=== PATIENT | male | born 1970 | race Caucasian/White ===

== ENCOUNTER 2024-11-19 08:06 | Inpatient (IN) | payer BC, MEDICAID ==
[~2024-11-19] VITALS: Ht 167.6 cm; Wt 71.2 kg
[2024-11-19 09:19] LABS: BASOPHILS % 1.1 % (0.0-2.0); EOSINOPHILS % 2.3 % (0.0-5.0); HEMATOCRIT. 48.4 % (42.0-52.0); LYMPHOCYTES % 38.3 % (20.0-50.0); MEAN CORPUSCULAR HEMOGLOBIN 30.3 pg (28.0-32.0); MEAN CORPUSCULAR HGB CONC 33.1 g/dL (31.0-37.0); MEAN CORPUSCULAR VOLUME 91.6 fL (80.0-94.0); MEAN PLATELET VOLUME 8.7 fl (7.4-10.4); MONOCYTES % 6.7 % (2.0-8.0); NEUTROPHILS % 51.6 % (40.0-76.0); PLATELET 221 x1000/uL (130-400); RED BLOOD CELL COUNT 5.29 mill/uL (4.7-6.1); RED CELL DISTRIBUTION WIDTH 13.4 % (11.6-14.6); WHITE BLOOD COUNT 5.6 x1000/uL (4.5-11.0)
[2024-11-19] MEDS: IOHEXOL-350 100 ML BOTTLE ONE (09:19)
[2024-11-19 09:21] LABS: CHLORIDE 106 mEq/L (98-107); POTASSIUM 4.3 mEq/L (3.5-5.1); SODIUM 140 mEq/L (136-145)
[2024-11-19 09:22] LABS: CALCIUM 9.6 mg/dL (8.7-10.4); CARBON DIOXIDE 24 mEq/L (21-32)
[2024-11-19 09:28] LABS: CREATININE 1.2 mg/dL (0.6-1.3); ETHANOL BLOOD < 10 mg/dL (<10); GLUCOSE 118 mg/dL (70-105); UREA NITROGEN BLOOD 14 mg/dL (9-23)
[2024-11-19 09:29] LABS: ALANINE AMINOTRANSFERASE 28 IU/L (10-49); ALBUMIN 4.4 g/dL (3.2-4.8); ASPARTATE AMINOTRANSFERASE 28 IU/L (<34); BILIRUBIN DIRECT 0.2 mg/dL (<=3.0)
[2024-11-19 09:30] LABS: BILIRUBIN TOTAL 0.7 mg/dL (0.1-1.0); PROTEIN TOTAL 7.7 g/dL (6.0-8.3)
[2024-11-19 10:00] LABS: TROPONIN I HIGH SENSITIVITY 118 ng/L (3.0-53)
[2024-11-19 11:11] LABS: INR 0.9; PROTHROMBIN TIME 10.6 sec (9.6-11.0)
[2024-11-19] MEDS ORDERED: ONDANSETRON HCL 4MG/2ML INJ IV PRN (11:15)
[2024-11-19] MEDS ORDERED: ZOLPIDEM TARTRATE 5MG TABLET PO PRN (11:15)
[2024-11-19] MEDS ORDERED: IPRATROPIUM/ALBUTEROL 0.5-3(2.5)MG/3ML NEB NEB PRN (11:15)
[2024-11-19] MEDS ORDERED: ACETAMINOPHEN 325MG TABLET PO PRN (11:15)
[2024-11-19] MEDS ORDERED: CLONIDINE 0.1MG TABLET PO PRN (11:15)
[2024-11-19] MEDS ORDERED: HYDROCODONE/ACETAMINOPHEN 5/325MG TABLET PO PRN (11:15)
[2024-11-19 11:20] LABS: TROPONIN I HIGH SENSITIVITY 115 ng/L (3.0-53)
[2024-11-19] MEDS: ENOXAPARIN 40MG/0.4ML SYR SUBCUT SCH (12:58)
[2024-11-19 15:09] VITALS: BP 109/76; PULSE 57; RESP 20; TEMP 37.11408; O2SAT 99
[2024-11-19 16:00] VITALS: BP 125/90; PULSE 73; RESP 20; TEMP 36.00288; O2SAT 97
[2024-11-19] MEDS ORDERED: CLOPIDOGREL 75MG TABLET PO STA (16:38)
[2024-11-19] MEDS ORDERED: CLOPIDOGREL 75MG TABLET PO ONE (16:57)
[2024-11-19] MEDS: CLOPIDOGREL 75MG TABLET PO NR (17:48)
[2024-11-19] MEDS: ASPIRIN 325MG EC TABLET PO NR (17:48)
[2024-11-19] MEDS: ATORVASTATIN CALCIUM 40MG TABLET PO NR (17:48)
[2024-11-19 18:47] LABS: CREATINE KINASE MB FRACTION 1.7 ng/mL (0.5-3.6)
[2024-11-19 20:00] VITALS: BP 116/73; PULSE 51; RESP 19; TEMP 35.94732; O2SAT 97
[2024-11-19] MEDS ORDERED: ATORVASTATIN CALCIUM 40MG TABLET PO SCH ×2 (21:00)
[2024-11-19 21:51] VITALS: BP 116/73; PULSE 51; RESP 20; TEMP 35.9732
[2024-11-19] MEDS ORDERED: SPIR25TA PO (22:14)
[2024-11-19] MEDS ORDERED: EMPA10TA PO (22:14)
[2024-11-19] MEDS ORDERED: PRAV10TA35 PO (22:14)
[2024-11-19] MEDS ORDERED: ASPI-1406 PO (22:14)
[2024-11-19] MEDS ORDERED: LISI-186 PO (22:14)
[2024-11-19] MEDS ORDERED: METO-385 PO (22:17)
[2024-11-19 23:42] LABS: CREATINE KINASE MB FRACTION 1.4 ng/mL (0.5-3.6)
[2024-11-20] VITALS: BP 106/67; PULSE 55; RESP 20; TEMP 36.22512; O2SAT 99
[2024-11-20 04:00] VITALS: BP 101/68; PULSE 54; RESP 16; TEMP 36.22512; O2SAT 99
[2024-11-20 07:14] LABS: CARBON DIOXIDE 22 mEq/L (21-32); CHLORIDE 105 mEq/L (98-107); SODIUM 140 mEq/L (136-145)
[2024-11-20 07:16] LABS: CALCIUM 9.5 mg/dL (8.7-10.4)
[2024-11-20 07:19] LABS: CREATININE 1.1 mg/dL (0.6-1.3)
[2024-11-20 07:20] LABS: CHOLESTEROL 153 mg/dL (<200); GLUCOSE 84 mg/dL (70-105); TRIGLYCERIDE 140 mg/dL (0-150)
[2024-11-20 07:21] LABS: LDL CHOLESTEROL 101 mg/dL (5-100); UREA NITROGEN BLOOD 13 mg/dL (9-23)
[2024-11-20 07:22] LABS: HDL CHOLESTEROL 39 mg/dL (>55)
[2024-11-20 08:00] VITALS: BP 114/70; PULSE 67; RESP 16; TEMP 36.3918; O2SAT 99
[2024-11-20 08:02] LABS: CLARITY URINE CLEAR (CLEAR); COLOR URINE YELLOW (YELLOW); GLUCOSE URINE 3+ (NEGATIVE); KETONES URINE 1+ (NEGATIVE); LEUKOCYTE ESTERASE URINE NEGATIVE (NEGATIVE); NITRITE URINE NEGATIVE (NEGATIVE); OCCULT BLOOD URINE NEGATIVE (NEGATIVE); PH URINE 5.5 (4.5-8.0); PROTEIN URINE NEGATIVE (NEGATIVE); SPECIFIC GRAVITY URINE 1.029 (1.005-1.030); UROBILINOGEN URINE 0.2 E.U./dL (0.2-1.0)
[2024-11-20 08:49] LABS: *AMPHETAMINES SCREEN URINE NEGATIVE (NEGATIVE); *BARBITURATES SCREEN URINE NEGATIVE (NEGATIVE); *BENZODIAZEPINES SCREEN URINE NEGATIVE (NEGATIVE); *COCAINE SCREEN URINE NEGATIVE (NEGATIVE); METHADONE URINE SCREEN NEGATIVE (NEGATIVE); OPIATES URINE SCREEN NEGATIVE (NEGATIVE)
[2024-11-20 08:50] LABS: CANNABINOID URINE SCREEN NEGATIVE (NEGATIVE); ECSTASY MDMA SCREEN URINE NEGATIVE (NEGATIVE); PHENCYCLIDINE URINE SCREEN NEGATIVE (NEGATIVE)
[2024-11-20 08:53] LABS: BACTERIA URINE FEW; RBC URINE NONE SEEN /hpf (0-2); SQUAMOUS EPITHELIAL CELL URINE NONE SEEN /lpf (RARE/1+); WBC URINE 0-2 /hpf (0-2); YEAST URINE NONE SEEN
[2024-11-20] MEDS ORDERED: ASPIRIN 81MG EC TABLET PO SCH (09:00)
[2024-11-20] MEDS ORDERED: CLOPIDOGREL 75MG TABLET PO SCH (09:00)
[2024-11-20] MEDS: PANTOPRAZOLE SODIUM 40 MG/VIAL IV SCH (09:52)
[2024-11-20] MEDS: ASPIRIN 81MG EC TABLET PO SCH (09:52)
[2024-11-20] MEDS: CLOPIDOGREL 75MG TABLET PO SCH (09:52)
[2024-11-20 11:04] LABS: EOSINOPHILS % 2.8 % (0.0-5.0); HEMATOCRIT. 48.7 % (42.0-52.0); HEMOGLOBIN. 16.2 g/dL (14.0-18.0); LYMPHOCYTES % 34.9 % (20.0-50.0); MEAN CORPUSCULAR HEMOGLOBIN 30.4 pg (28.0-32.0); MEAN CORPUSCULAR HGB CONC 33.3 g/dL (31.0-37.0); MEAN CORPUSCULAR VOLUME 91.3 fL (80.0-94.0); MEAN PLATELET VOLUME 8.9 fl (7.4-10.4); NEUTROPHILS % 52.3 % (40.0-76.0); PLATELET 208 x1000/uL (130-400); RED BLOOD CELL COUNT 5.33 mill/uL (4.7-6.1); RED CELL DISTRIBUTION WIDTH 13.5 % (11.6-14.6); WHITE BLOOD COUNT 5.3 x1000/uL (4.5-11.0)
[2024-11-20 12:00] VITALS: BP 118/85; PULSE 69; RESP 20; TEMP 36.114; O2SAT 98
[2024-11-20 16:00] VITALS: BP 116/74; PULSE 64; RESP 16; TEMP 36.83628; O2SAT 99
[2024-11-20 20:00] VITALS: BP 117/80; PULSE 68; RESP 16; TEMP 36.33624; O2SAT 96
[2024-11-20] MEDS: ATORVASTATIN CALCIUM 40MG TABLET PO SCH (20:50)
[2024-11-21] VITALS: BP_SYST 105; BP_SYST 113; BP_DIAS 62; BP_DIAS 77; PULSE 63; PULSE 73; RESP 16; RESP 18; TEMP 36.114; TEMP 36.33624; O2SAT 96
[2024-11-21 04:00] VITALS: BP 105/62; PULSE 63; RESP 18; TEMP 36.33624; O2SAT 96
[2024-11-21 08:00] VITALS: BP 116/75; PULSE 68; RESP 18; TEMP 35.61396; O2SAT 100
[2024-11-21 08:29] LABS: CHLORIDE 105 mEq/L (98-107); POTASSIUM 3.9 mEq/L (3.5-5.1); SODIUM 139 mEq/L (136-145)
[2024-11-21 08:30] LABS: CARBON DIOXIDE 26 mEq/L (21-32)
[2024-11-21 08:31] LABS: CALCIUM 9.5 mg/dL (8.7-10.4)
[2024-11-21 08:35] LABS: CREATININE 1.1 mg/dL (0.6-1.3); GLUCOSE 118 mg/dL (70-105); UREA NITROGEN BLOOD 13 mg/dL (9-23)
[2024-11-21 08:40] LABS: BASOPHILS % 0.8 % (0.0-2.0); EOSINOPHILS % 1.8 % (0.0-5.0); HEMATOCRIT. 50.2 % (42.0-52.0); LYMPHOCYTES % 31.1 % (20.0-50.0); MEAN CORPUSCULAR VOLUME 91.2 fL (80.0-94.0); MEAN PLATELET VOLUME 8.5 fl (7.4-10.4); NEUTROPHILS % 58.3 % (40.0-76.0); PLATELET 204 x1000/uL (130-400); RED CELL DISTRIBUTION WIDTH 13.5 % (11.6-14.6); WHITE BLOOD COUNT 5.2 x1000/uL (4.5-11.0)
[2024-11-21 11:43] VITALS: BP 98/62; PULSE 71; TEMP 98.2; O2SAT 96
[2024-11-21 11:52] VITALS: BP 116/76; PULSE 74; RESP 18; TEMP 35.5584; O2SAT 98
[2024-11-21 16:01] VITALS: BP 98/62; PULSE 71; RESP 18; TEMP 36.78072; O2SAT 96
== END 2024-11-21 16:55 | disposition home or self-care (01) | DRG 91 ==
LOC: ER 08:06 → 7WST 09:27 → EDBEDREQ 09:34 → EDBEDREQTM 09:34
PROVIDERS: ADMIT Internal Medicine; ATTEND Internal Medicine
DX: R29.810 Facial weakness (principal); I21.4 Non-ST elevation (NSTEMI) myocardial infarction; R47.01 Aphasia; I50.22 Chronic systolic (congestive) heart failure; R41.3 Other amnesia; E11.9 Type 2 diabetes mellitus without complications; I11.0 Hypertensive heart disease with heart failure; E78.00 Pure hypercholesterolemia, unspecified; I25.10 Atherosclerotic heart disease of native coronary artery without angina pectoris; M10.9 Gout, unspecified; Z95.5 Presence of coronary angioplasty implant and graft; I25.2 Old myocardial infarction; Z79.82 Long term (current) use of aspirin; Z79.899 Other long term (current) drug therapy; Z79.02 Long term (current) use of antithrombotics/antiplatelets; Z87.442 Personal history of urinary calculi
CPT/HCPCS: 36415; 70496; 70498; 70551; 71045; 80048; 80061; 80076; 80305; 80320; 81003; 82550; 82553; 82962; 83036; 84484; 85025; 92523; 92610; 93005; 93306; 93880; 93970; 97162; 97165; 99291; J1650; J2470; Q9967; G0480